=== PATIENT | female | born 1970 | race Caucasian/White ===

== ENCOUNTER → 2021-06-03 01:00 | Outpatient (CLI) | payer OTHER, SELFPAY ==
[2021-06-03 22:45] LABS: SARS-CoV-2 RNA PCR Negative
== END ==
PROVIDERS: PCP Family Medicine; Visit Provider Physician Assistant Medical
DX: Z20.822 Contact with and (suspected) exposure to COVID-19 (principal)
CPT/HCPCS: C9803; U0003; U0005

== ENCOUNTER 2023-07-15 13:15 | Emergency (ER) | payer OTHER, SELFPAY ==
[2023-07-15 13:25] VITALS: BP 135/105; PULSE 87; RESP 16; TEMP 36.3; O2SAT 98
--- NOTE | 2023-07-15 13:30 | ED.URI ---
HPI - URI/Sore Throat General Chief Complaint: Upper Respiratory Infection Stated Complaint: Cold symptoms Time Seen by Provider: 07/15/23 13:27 Source: patient Mode of arrival: ambulatory Limitations: no limitations History of Present Illness HPI Narrative: Renetta is a 52-year-old female patient presenting to the clinic today with complaints cough and congestion x3 weeks. She reports she does have a productive cough but does not know the color of the drainage. No fever or chills. Denies any chest pain or shortness of breath. MD elicited complaint: cough and nasal congestion Related Data Allergies Allergy/AdvReac Type Severity Reaction Status Date / Time No Known Allergies Allergy Verified 07/15/23 13:23 Review of Systems Review of Systems: Pertinent positives per HPI. Patient denies any fever, chills, rash, headache, visual changes, dizziness, shortness of breath, chest pain, palpitations, nausea, vomiting, diarrhea, constipation, abdominal pain, or any urinary issues. PMFSH Surgical History Surgical History H/O thumb surgery Previous section x2 Family History Family History Grandparent Diabetes mellitus Family history of malignant neoplasm of breast Father Family history of blood dyscrasia Hypertension Malignant neoplasm of prostate Mother Family history of elevated blood lipids Family history of chronic obstructive pulmonary disease Social History Social History Smoking status: Never smoker Second hand tobacco smoke exposure: No Alcohol intake: current Drinks per week: 3 Substance use type: does not use Living arrangements: with family Occupation/Education: occupation Gender identity (if verbalized by the patient): Female Spiritual care concerns: No Agree to blood products: Yes Comments At the time of my signature, I reviewed and agree with the nursing past medical, surgical, social, and family history. There is no relevant family history pertinent to the patient complaint. Exam Narrative: General: Well-developed, well nourished, in no apparent distress Head: Normocephalic, atraumatic Eyes: Pupils equally round and reactive to light bilaterally, EOM intact, sclera and conjunctive clear, no discharge, lids normal Ears: TMs intact and clear, ear canals clear, no drainage, grossly hearing normal. Nose: Nares patent, clear discharge, no inflammation, no sinus tenderness. Mouth: Oral pharynx without lesions or masses, good dentition, MMM. Neck: Supple, trachea midline, no enlargement of anterior or posterior cervical nodes, no thyroid masses or goiter palpable. Cardio: Regular rate and rhythm, s1 and s2 normal, no murmur appreciated. Resp: Clear to auscultation bilaterally, no rhonchi, rales, wheezing or rubs Course Course Emergency Course: Portions of this record may have been created with voice recognition software. Level of Care: Express Care Visit Vital Signs Vital signs: Vital Signs Temperature 36.3 C L 07/15/23 13:25 Pulse Rate 87 07/15/23 13:25 Respiratory Rate 16 07/15/23 13:25 Blood Pressure 135/105 H 07/15/23 13:25 Pulse Oximetry 98 07/15/23 13:25 Temperature 36.3 C L 07/15/23 13:25 Pulse Rate 87 07/15/23 13:25 Respiratory Rate 16 07/15/23 13:25 Blood Pressure 135/105 H 07/15/23 13:25 Pulse Oximetry 98 07/15/23 13:25 Vital signs reviewed MDM - URI/Sore Throat MDM Narrative Medical decision making narrative: At the time of visit patient is resting comfortably on exam table. Lung sounds are clear and patient is afebrile. She denies any shortness of breath or chest pain. I suspect she has acute cough due to postnasal drip. She denies any sinus tenderness. prescription for prednisone was sent to the pharmacy and supportive measur
== END 2023-07-15 13:35 | disposition home or self-care (01) ==
PROVIDERS: Emergency Provider Nurse Practitioner Family; PCP Family Medicine
DX: R09.82 Postnasal drip (principal); R05.1 Acute cough
CPT/HCPCS: 99213; G0463

== ENCOUNTER 2024-08-12 14:25 | Emergency (ER) | payer OTHER, SELFPAY ==
[2024-08-12] VITALS (7 sets, daily range): BP systolic 127–173; BP diastolic 86–117; PULSE 81–90; RESP 16–19; TEMP 36.2–36.7; O2SAT 95–99
--- NOTE | ~2024-08-12 | XR_ITS ---
EXAMINATION: XR chest 2V DATE: 08/12/2024 14:57 INDICATION: Chest pain. Headache. TECHNIQUE: Frontal and lateral views of the chest were obtained. COMPARISON: None. FINDINGS: There is no pneumonia, pleural effusion, or pneumothorax. The heart size is normal. IMPRESSION: 1. No acute cardiopulmonary disease. Reviewed, dictated and finalized at location A. NTORY ASSOCIATE
--- NOTE | ~2024-08-12 | CT_ITS ---
EXAMINATION: CTA brain carotid DATE: 08/12/2024 15:26 INDICATION: Right frontal headache. TECHNIQUE: Computed tomographic angiography (CTA) of the head was performed without and with 100 mL O [id number] intravenous contrast. CTA of the neck was performed with intravenous contrast. Automated exposure control and iterative reconstruction technique were employed. The dose-length product was 1 509.28 mGy-cm. Maximum intensity projection and volume rendered 3D-reconstructions were created by karl richmond technologist on a separate workstation. COMPARISON: None. FINDINGS: HEAD CTA: There is no intracranial hemorrhage, acute infarction, or abnormal intracranial mass lesion . The ventricles are normal in size. The orbits are normal. The paranasal sinuses are clear. The mast oid air cells are normal. Left vertebral artery is dominant. There is no significant stenosis of basi lar artery or the posterior cerebral arteries. The posterior communicating arteries are normal. There is no significant stenosis of the intracranial internal carotid arteries or anterior or middle cereb ral arteries. Anterior communicating artery is normal. There is no aneurysm. NECK CTA: There is a 7 mm nodule in the thyroid, likely not clinically significant. There are no path ologically enlarged lymph nodes. There is no visible plaque in the proximal internal carotid arteries . There is 0% stenosis of the proximal right internal carotid artery relative to normal distal artery lumen diameter (NASCET criteria). There is 0% stenosis of the proximal left internal carotid artery relative to normal distal artery lumen diameter. There is severe cervical spondylosis. IMPRESSION: 1. Normal brain. No aneurysm or significant intracranial arterial stenosis. 2. 0% stenosis of the proximal internal carotid arteries relative to normal distal artery lumen diame ters (NASCET criteria). Reviewed, dictated and finalized at location A. AIN SUPERVISOR IMPRESSION: 1. Normal brain. No aneurysm or significant intracranial arterial stenosis. 2. 0% stenosis of the proximal internal carotid arteries relative to normal dis maynor artery lumen diameters (NASCET criteria).
--- NOTE | 2024-08-12 14:28 | ECG_ITS ---
Test Date: 2024-08-12 14:37:03 Measurements Intervals [place] Rate: 82 P: 33 CT: 142 QRS: -22 QRSD: 83 T: 25 QT: 355 QTc: 415 Interpretive Statements SINUS RHYTHM VOLTAGE CRITERIA FOR LVH BORDERLINE R WAVE PROGRESSION, ANTERIOR LEADS BORDERLINE ECG Compared to ECG 08/12/2024 13:45:19 No significant changes Electronically Signed On 08-12-2024 15:02:25 DIRECTORY ASSISTANCE OPERATOR by Ayo Singletary D.O.
--- NOTE | 2024-08-12 14:41 | ED_ITS ---
HPI - Chest Pain General Chief Complaint: Chest Pain Stated Complaint: CP, h/a, elevated BP Time Seen by Provider: 08/12/24 14:40 Source: patient Mode of arrival: ambulatory Limitations: no limitations History of Present Illness HPI narrative: This is a 53-year-old female who presents to the ED for chief complaint of headache and and N/V beginning this week. Reports 2 distinct episodes with the 1st being 2 days ago. Reports she was driving home and started to have rather sudden onset of right frontal headache that did not radiate. Reports associated with nausea and vomiting. States that she felt fine yesterday after a few doses of Advil the previous night. However today she had another episode of the h eadache on the right side, associated with nausea vomiting. She states that she feels a bit off and that it can be hard to find some words. She describes lightheadedness and chest palpitations but denies chest pain. She was seen in urgent care prior to arrival and was told to come to the ER. Denies extremity numbness, weakness, visual disturbance, confusion, syncope, head injury, any further site of pain. Related Data Allergies Allergy/AdvReac Type Severity Reaction Status Date / Time No Known Allergies Allergy Verified 08/12/24 14:12 Review of Systems Review of Systems: All systems as dictated [facility] Surgical History Surgical History H/O thumb surgery Previous section x2 Family History Family History Grandparent Diabetes mellitus Family history of malignant neoplasm of breast Father Family history of blood dyscrasia Hypertension Malignant neoplasm of prostate Mother Family history of elevated blood lipids Family history of chronic obstructive pulmonary disease Social History Social History Smoking status: Never smoker Second hand tobacco smoke exposure: No Alcohol intake: current Drinks per week: 3 Substance use type: does not use Living arrangements: with family Occupation/Education: occupation Gender identity (if verbalized by the patient): Female Spiritual care concerns: No Agree to blood products: Yes Exam Narrative: GENERAL: Well-appearing, well-nourished, and in no acute distress. HEAD: Normocephalic, atraumatic. EYES: PERRLA and EOMI. ENT: Nares clear, no rhinorrhea or epistaxis. Mucous membranes moist. Oropharynx without tonsillar hypertrophy exudate or other lesions. NECK: Supple. No adenopathy or masses. CHEST: No respiratory distress. Clear to auscultation. No wheezes rales or rhonchi HEART: Regular rate and rhythm. No murmur heard. Normal peripheral pulses. ABDOMEN: Soft, nontender, nondistended, normal active bowel sounds. MSK: Normal range of motion. No edema. SKIN: Warm, dry, no rash. NEURO: Alert and oriented x4. No focal deficits. PSYCH: Normal mood and affect. Course Vital Signs Vital signs: Vital Signs Temperature 97.1 F L 08/12/24 14:40 Pulse Rate 83 08/12/24 14:40 Respiratory Rate 16 08/12/24 14:40 Blood Pressure 173/107 H 08/12/24 14:40 Pulse Oximetry 97 08/12/24 14:40 Temperature 98.1 F 08/12/24 16:13 Pulse Rate 89 08/12/24 16:13 Respiratory Rate 19 08/12/24 16:13 Blood Pressure 127/86 08/12/24 16:13 Pulse Oximetry 98 08/12/24 16:13 Oxygen Delivery Room Air 08/12/24 15:13 MDM - Chest Pain MDM Narrative Medical decision making narrative: This is a 53-year-old female who presents to the ED for chief complaint of headache, chest palpitations, elevated blood pressure. Vitals do show elevated blood pressure initially but otherwise normal. Exam remarkable for the above. No neurologic deficits on exam. History is slightly concerning due to new onset headaches. EKG shows sinus rhythm with no acute ischemia Lab work normal troponin. CBC shows mildly elevated white count of 13.6, consistent with stress reaction with vomiting. CMP unremarkable. CXR shows no acute findings. CTA head and neck: IMPRESSION: 1. Normal brain. No aneurysm or significant intracranial arterial stenosis. 2. 0% stenosis of the proximal internal carotid arteries relative to normal distal artery lumen diameters (NASCET criteria).. Patient has improved with fluids and Toradol here. Presentation consistent with migraine versus tension headache. Advised close follow-up with PCP on this issue. Pt will be discharged in stable condition. Return precautions given and supportive measures discussed. Pt is understanding and agreeable with plan for discharge and follow-up with PCP. Lab Data 08/12/24 14:48 08/12/24 14:48 Labs: Lab Results 08/12/24 Range/Units 14:48 WBC 13.6 H (4.5-10.0) K/mm3 RBC 5.19 (4.2-5.4) M/mm3 Hgb 14.6 (12.0-15.0) g/dL Hct 43.7 (37.0-47.0) % MCV 84.2 (80-100) fl MCH 28.1 (26-34) pg MCHC 33.4 (32-36) g/dl RDW 13.7 (11.5-14.5) % Plt Count 239 (150-375) k/mm3 MPV 10.4 (7.4-10.4) fl Immature Gran % (Auto) 0.4 (0-0.5) % Neut % (Auto) 73.4 H (45.5-73.1) % Lymph % (Auto) 17.9 L (18.3-44.2) % [place] % (Auto) 7.2 (2.6-8.5) % Eos % (Auto) 0.8 (0-4.4) % Baso % (Auto) 0.3 (0.2-1.2) % Lymph # (Auto) 2.43 (0.9-3.2) K/mm3 [place] # (Auto) 1.0 H (0.1-0.6) K/mm3 Eos # (Auto) 0.1 (0-0.3) K/mm3 Baso # (Auto) 0.0 (0.0-0.1) K/mm3 Abs Immat Gran (auto) 0.06 H (0.00-0.031) K/mm3 Absolute Neuts (auto) 9.9 H (1.3-6.7) K/mm3 Absolute Nucleated RBC 0.000 (0.0-0.012) K/mm3 Nucleated RBC % 0.0 (0.0-0.2) % PT 13.0 (11.1-14.7) Seconds INR 0.9 APTT 24.5 (22.3-36.8) Seconds Sodium 141 (137-145) mmol/L Potassium 3.9 (3.4-5.0) mmol/L Chloride 107 (98-107) mmol/L Carbon Dioxide 25 (22-30) mmol/L Anion Gap 9 (4-12) mmol/L BUN 12 (7-17) mg/dL Creatinine 0.50 L (0.7-1.0) mg/dL Estim Creat Clear Calc 106 ml/min Estimated GFR > 60 (59 - ) Glucose 122 H (65-110) mg/dL Calcium 10.1 (8.4-10.2) mg/dL Magnesium 2.0 (1.6-2.3) mg/dL Total Bilirubin 0.5 (0.2-1.3) mg/dL AST 28 (14-36) U/L ALT 33 (6-35) U/L Alkaline Phosphatase 62 (38-126) U/L Troponin I < 0.012 (0.000-0.034) ng/mL Total Protein 9.0 H (6.3-8.2) g/dL Albumin 4.6 (3.5-5.1) g/dL Lipase 317 H (23-300) U/L ECG Data EKG #1: ECG completion date: 08/12/24 ECG completion time: 14:37 Prior ECG tracings: available for review Interpretation: Sinus rhythm Rate 82 QRS normal QTC normal No acute ischemic findings Discharge Plan Discharge Clinical Impression: Headache, Elevated blood pressure reading Patient Disposition: Home, Self-Care Condition: Stable Instructions: Antibiotic Form Additional Instructions: Exam and imaging today are reassuring overall. May be a bit of an atypical migraine. Please follow-up closely with PCP regarding elevated blood pressures and any further headaches. Stay well hydrated at home and take Tylenol/ibuprofen every 4-6 hours as needed for headache. If you have any new or worsening symptoms please return to the ER for further evaluation. Prescriptions: No Action atorvastatin [Lipitor] 10 mg tablet 10 mg PO DAILY Qty: 90 0RF Rx Instructions: NEEDS APPOINTMENT FOR FURTHER REFILLS sertraline 50 mg tablet See Rx Instructions .ROUTE .COMPLEX Qty: 90 2RF Dose Instruction: TAKE 1 TABLET BY MOUTH DAILY Rx Instructions: TAKE 1 TABLET BY MOUTH DAILY Follow-up/Referrals: Mark Boone MD [Primary Care Provider] - Time of Disposition: 15:54
[2024-08-12 14:54] LABS: Basophils Percent Auto 0.3 % (0.2-1.2); Eosinophils Absolute Auto 0.1 K/mm3 (0-0.3); Eosinophils Percent Auto 0.8 % (0-4.4); Hematocrit 43.7 % (37.0-47.0); Hemoglobin 14.6 g/dL (12.0-15.0); Immature Granulocyte Absolute 0.06 K/mm3 (0.00-0.031); Immature Granulocyte Percent A 0.4 % (0-0.5); Lymphocytes Absolute Auto 2.43 K/mm3 (0.9-3.2); Lymphocytes Percent Auto 17.9 % (18.3-44.2); Mean Corpuscular HGB Conc 33.4 g/dl (32-36); Mean Corpuscular Hemoglobin 28.1 pg (26-34); Mean Corpuscular Volume 84.2 fl (80-100); Mean Platelet Volume 10.4 fl (7.4-10.4); Monocytes Percent Auto 7.2 % (2.6-8.5); Neutrophils Absolute Auto 9.9 K/mm3 (1.3-6.7); Neutrophils Percent Auto 73.4 % (45.5-73.1); Platelet Count Result 239 k/mm3 (150-375); Red Blood Count 5.19 M/mm3 (4.2-5.4); Red Cell Distribution Width 13.7 % (11.5-14.5); White Blood Count 13.6 K/mm3 (4.5-10.0)
[2024-08-12 15:05] LABS: Alanine Aminotransferase 33 U/L (6-35); Albumin Level 4.6 g/dL (3.5-5.1); Alkaline Phosphatase 62 U/L (38-126); Anion Gap 9 mmol/L (4-12); Aspartate Amino Transferase 28 U/L (14-36); Bilirubin,Total 0.5 mg/dL (0.2-1.3); Blood Urea Nitrogen 12 mg/dL (7-17); Calcium 10.1 mg/dL (8.4-10.2); Carbon Dioxide 25 mmol/L (22-30); Chloride 107 mmol/L (98-107); Estimated CRCL calculation 106 ml/min; Estimated Glomerular Filt Rate > 60; Glucose 122 mg/dL (65-110); Lipase 317 U/L (23-300); Potassium 3.9 mmol/L (3.4-5.0); Sodium 141 mmol/L (137-145)
[2024-08-12] MEDS: SODIUM CHLORIDE 0.9% IV 1,000 ML 999 ML IV CONT (15:07)
[2024-08-12 15:08] LABS: INR 0.9
[2024-08-12 15:09] LABS: Partial Thromboplastin Time 24.5 Seconds (22.3-36.8)
[2024-08-12 15:16] LABS: Troponin I < 0.012 ng/mL (0.000-0.034)
[2024-08-12] MEDS: KETOROLAC 15 MG/ML VIAL (*BKC) IV PUSH (16:00)
--- NOTE | 2024-08-12 16:11 | PC.NURSE ---
pt IV wnl with blood return and flushing well. no IV site concerns. bag of fluids still would not infuse. even after changing IV tubing.
== END 2024-08-12 16:10 | disposition home or self-care (01) ==
PROVIDERS: Student in an Organized Health Care Education/Training Program; Emergency Provider Physician Assistant; PCP Family Medicine
DX: R51.9 Headache, unspecified (principal); R03.0 Elevated blood-pressure reading, without diagnosis of hypertension; E78.00 Pure hypercholesterolemia, unspecified; F41.9 Anxiety disorder, unspecified; Z79.899 Other long term (current) drug therapy; R94.31 Abnormal electrocardiogram [ECG] [EKG]
CPT/HCPCS: 36415; 70496; 70498; 71046; 80053; 83690; 83735; 84484; 85025; 85610; 85730; 93005; 96361; 96374; 99284; J1885; J7030; Q9967